=== PATIENT | female | born 2000 | race Caucasian/White ===

== ENCOUNTER 2019-12-16 09:07 | Emergency (ER) | payer BC ==
[2019-12-16 10:09] VITALS: BP 121/76
--- NOTE | 2019-12-16 10:28 | UC ---
Complaint Female HPI - HPI Summary HPI Summary: Pt reports vaginal itching, discharge and tenderness on inner left labia. Pt states she had heterosexual intercourse last week. Did not use condom but states partner "was clean". Pt has hx of frequent vaginal yeast infections. Pt is concerned that she has one now and also has tender area on left inner labia. No lump or sore noted. - History Of Current Complaint Chief Complaint: UCGU Stated Complaint: PERSONAL Time Seen by Provider: 12/16/19 10:05 Hx Obtained From: Patient Hx Last Menstrual Period: 12/06/19 ?: No Onset/Duration: Gradual Onset, Lasting Days, Still Present Timing: Intermittent - pain on labia is intermittent Severity Initially: Mild Severity Currently: Mild Pain Intensity: 0 Character: Burning Aggravating Factor(s): Urination Associated Signs And Symptoms: Positive: Vaginal Discharge - Risk Factors Ectopic Risk Factor: Negative Ovarian Torsion Risk Factor: Reproductive Age - Allergies/Home Medications Allergies/Adverse Reactions: Allergies Allergy/AdvReac Type Severity Reaction Status Date / Time No Known Allergies Allergy Verified 12/16/19 10:05 Home Medications: Home Medications Citalopram TAB* [Celexa TAB*] 20 mg PO DAILY 12/16/19 [History Confirmed ] Norethindrone-E.estradiol-Iron [Blisovi Fe 1.5-30 Tablet] 1 tab PO DAILY [History Confirmed 12/16/19] PMH/Surg Hx/FS Hx/Imm Hx Previously Healthy: Yes - Surgical History Surgical History: None - Family History Known Family History: Positive: Cardiac Disease - Social History Occupation: Student Lives: With Family Alcohol Use: Occasionally Substance Use Type: None Smoking Status (MU): Never Smoked Tobacco Have You Smoked in the Last Year: No - Immunization History Vaccination Up to Date: Yes Review of Systems All Other Systems Reviewed And Are Negative: Yes Constitutional: Positive: Negative Skin: Positive: Negative Eyes: Positive: Negative ENT: Positive: Negative Respiratory: Positive: Negative Cardiovascular: Positive: Negative Gastrointestinal: Positive: Negative Genitourinary: Positive: Vaginal/Penile Burning, Vaginal/Penile Itching, Vaginal /Penile Discharge, Vaginal/Penile Tenderness Motor: Positive: Negative Neurovascular: Positive: Negative Musculoskeletal: Positive: Negative Neurological: Positive: Negative Psychological: Positive: Negative Is Patient Immunocompromised?: No Physical Exam Triage Information Reviewed: Yes Appearance: Well-Appearing Vital Signs: Initial Vital Signs Temp 98.8 F 12/16/19 10:03 Pulse 84 12/16/19 10:03 Resp 16 12/16/19 10:03 BP 121/76 12/16/19 10:03 Pulse Ox 100 12/16/19 10:03 Vital Signs Reviewed: Yes Eye Exam: Normal ENT: Positive: Hearing grossly normal Dental Exam: Normal Neck exam: Normal Respiratory: Positive: No respiratory distress Abdominal Exam: Normal Abdomen Description: Positive: Nontender Pelvic Exam: Positive: External Exam Normal, Discharge - thick white, Other - c/ o tenderness with examination of left labia. no mas or lump appreciated, no lesion or ulceration appreciated Musculoskeletal Exam: Normal Neurological Exam: Normal Psychological Exam: Normal Skin Exam: Normal Complaint Female Dx - Course Course Of Treatment: I discussed with the pt the need to use condoms in addition to current BCP. I also discussed the s/sx of herpes and syphilis and pt verbalized understanding and agreed to plan of care. - Differential Dx/Diagnosis Differential Diagnosis/HQI/PQRI: Sexually Transmitted Disease, Urinary Tract Infection Provider Diagnosis: Vaginitis, Labia irritation Discharge ED - Sign-Out/Discharge Documenting (check all that apply): Patient Departure All imaging exams completed and their final reports reviewed: No Studies - Discharge Plan Condition: Stable Disposition: HOME Prescriptions: Fluconazole 150 MG TAB* [Diflucan 150 MG TAB*] 150 mg PO DAILY #2 tablet Patient Education Materials: Vaginitis (ED), Bartholin Cyst (ED) Referrals: [facility] [place] [facility] [Outside] - [facility] [[facility] - If Needed No Primary Care Phys,NOPCP [Primary Care Provider] - Additional Instructions: Please follow up with your PC or return to clinic as needed. If your symptoms worsen or do not improve please return to clinic or go to the closest emergency room. - Billing Disposition and Condition Condition: STABLE Disposition: Home - Attestation Statements Provider Attestation: I was available for consult. This patient was seen by the [facility]. The patient was not presented to , seen by or examined by -Randa Hammond MD
--- NOTE | 2019-12-18 07:34 | UC ---
- Progress Note Progress Note: Urine culture and vaginal DNA comes back from December 16, 2019 with a urine culture positive for strep group B and vaginal DNA positive for Gardnerella and Claudia negative for Trichomonas. Gonorrhea chlamydia are pending. Patient is on Diflucan for the Claudia already. Nursing to call patient and let them know to start Flagyl 500 mg by mouth twice a day for 7 days for the Gardnerella and amoxicillin 500 mg by mouth 3 times a day for 7 days for the strep group B UTI. Course/Dx - Diagnoses Provider Diagnoses: Vaginitis, Labia irritation Discharge ED - Sign-Out/Discharge Documenting (check all that apply): Patient Departure All imaging exams completed and their final reports reviewed: No Studies - Discharge Plan Condition: Stable Disposition: HOME Prescriptions: Amoxicillin PO (*) [Amoxicillin 500 MG CAP*] 500 mg PO TID #21 cap Fluconazole 150 MG TAB* [Diflucan 150 MG TAB*] 150 mg PO DAILY #2 tablet metroNIDAZOLE [Flagyl 500 MG TAB] 500 mg PO BID #14 tab Patient Education Materials: Vaginitis (ED), Bartholin Cyst (ED) Referrals: [facility] [place] [facility] [Outside] - If Needed [facility] [Outside] - If Needed No Primary Care Phys,NOPCP [Primary Care Provider] - Additional Instructions: Please follow up with your PC or return to clinic as needed. If your symptoms worsen or do not improve please return to clinic or go to the closest emergency room. - Billing Disposition and Condition Condition: STABLE Disposition: Home
[2019-12-18 13:50] LABS: Chlamydia trachomatis NAA Negative (Negative); Neisseria gonorrhoeae (GC) NAA Negative (Negative)
== END 2019-12-16 10:53 | disposition home or self-care (01) ==
LOC: UCCORT 09:07
DX: N76.0 Acute vaginitis (principal); N89.8 Other specified noninflammatory disorders of vagina
CPT/HCPCS: 81003; 87077; 87086; 87480; 87491; 87510; 87591; 87660; 99202; G0463

== ENCOUNTER 2020-01-11 20:37 | Emergency (ER) | payer BC ==
--- NOTE | 2020-01-11 20:47 | UC ---
Throat Pain/Nasal Laci HPI - HPI Summary HPI Summary: 19yo female presenting with mother for c/o sore throat and cough. Patient states symptoms have been present since being diagnosed with influenza 6 days ago. Patient states sore throat worsening now and cough is not improving. States "isn't really productive" but states she "feels chest congestion." Denies sob, wheezing, and difficulty breathing. Denies chest pain. Denies n/v. Denies any fevers since symptom onset. Normal appetite and fluid intake. States she "feels fine but thought she would be fine by now." States she took last dose of tamiflu earlier today. Denies h/o asthma. Nonsmoker. - History of Current Complaint Stated Complaint: SORE THROAT Hx Obtained From: Patient Hx Last Menstrual Period: 12/06/19 - Allergies/Home Medications Allergies/Adverse Reactions: Allergies Allergy/AdvReac Type Severity Reaction Status Date / Time No Known Allergies Allergy Verified 01/11/20 20:49 Home Medications: Home Medications Citalopram TAB* [Celexa TAB*] 20 mg PO DAILY 12/16/19 [History Confirmed ] Norethindrone-E.estradiol-Iron [Blisovi Fe 1.5-30 Tablet] 1 tab PO DAILY [History Confirmed 01/11/20] PMH/Surg Hx/FS Hx/Imm Hx Previously Healthy: Yes - Surgical History Surgical History: None - Family History Known Family History: Positive: Cardiac Disease - Social History Alcohol Use: Occasionally Substance Use Type: None Smoking Status (MU): Never Smoked Tobacco Have You Smoked in the Last Year: No - Immunization History Vaccination Up to Date: Yes Review of Systems All Other Systems Reviewed And Are Negative: Yes Constitutional: Positive: Negative. Negative: Fever, Chills, Fatigue ENT: Positive: Sore Throat Respiratory: Positive: Cough. Negative: Shortness Of Breath Cardiovascular: Positive: Negative Gastrointestinal: Positive: Negative Musculoskeletal: Positive: Negative. Negative: Myalgia Neurological/Mental Status: Positive: Negative Physical Exam - Summary Physical Exam Summary: Vital Signs Reviewed: Yes A+Ox3, no distress, well-appearing Eyes: Conjunctiva Clear ENT: Hearing grossly normal, TM x 2 clear, moist, uvula midline, no exudate, no erythema Neck: Positive: Supple Respiratory: Positive: No respiratory distress, No accessory muscle use + CTA throughout no wheezing, no rales, no rhonchi, no tachypnea Cardiovascular: RRR nl s1, s2 no m/r Musculoskeletal Exam: LOVE x 4 without difficulty Neurological: Positive: Alert Psychological: Positive: age appropriate behavior Skin: Positive: no rash, no ecchymosis Vital Signs: Vital Signs (72 hours) 01/11/20 20:46 Temperature 99.2 F Pulse Rate 79 Respiratory 16 Rate Blood Pressure 101/73 (mmHg) O2 Sat by Pulse 100 Oximetry Lab Results 01/11/20 Range/Units 20:55 Group A Strep Rapid Negative (Negative) Throat Pain/Nasal Course/Dx - Course Course Of Treatment: Rapid strep test negative. VS normal and lung sounds clear. Afebrile and no respiratory distress. I further educated on influenza and duration of symptoms. I also educated on symptomatic treatment. Discussed s/s of worsening respiratory illness, including difficulty breathing, fever, n/v. I instructed patient to go to ED with any new or worsening symptoms. Patient and mother voiced understanding and agreed with treatment plan. - Differential Dx/Diagnosis Provider Diagnosis: Influenza-like symptoms Discharge ED - Sign-Out/Discharge Documenting (check all that apply): Patient Departure All imaging exams completed and their final reports reviewed: No Studies - Discharge Plan Condition: Stable Disposition: HOME Patient Education Materials: Influenza (ED) Referrals: [facility] [Outside] - If Needed Additional Instructions: Your strep test was negative today. Your symptoms are likely still caused by the flu. You may take an over the counter decongestant to help alleviate congestion. Get plenty of rest and increase your fluid intake. Follow up with the [facility] clinic listed below if your symptoms do not improve within 5-7 days. Go to the emergency room if you experience new or worsening symptoms, including fever, difficulty breathing, and nausea and vomiting. - Billing Disposition and Condition Condition: STABLE Disposition: Home - Attestation Statements Provider Attestation: Per institutional requirements, I have reviewed the chart, however, I was not consulted specifically or made aware of this patient by the midlevel provider. I did not personally evaluate, interact with, or disposition this patient. EK
[2020-01-11 20:49] VITALS: BP 101/73
== END 2020-01-11 21:12 | disposition home or self-care (01) ==
LOC: UCCORT 20:37
DX: J02.9 Acute pharyngitis, unspecified (principal); R05 Cough
CPT/HCPCS: 87651; 99211; G0463